=== PATIENT | male | born 1940 | race Caucasian/White ===

== ENCOUNTER → 2020-08-25 09:08 | Outpatient (CLI) | payer MEDICARE, SELFPAY ==
[2020-08-25 11:21] LABS: COVID19 -Nasal RAPID Negative (Negative)
== END ==
PROVIDERS: Visit Provider Physician Assistant
DX: Z01.812 Encounter for preprocedural laboratory examination (principal); Z20.822 Contact with and (suspected) exposure to COVID-19
CPT/HCPCS: 87635; C9803

== ENCOUNTER 2020-08-26 12:11 | Day surgery (SDC) | payer MEDICARE, SELFPAY ==
[2020-08-26] VITALS (14 sets, daily range): BP systolic 106–160; BP diastolic 43–106; PULSE 48–60; RESP 10–18; TEMP 35.7–36.7; O2SAT 89–99; BMI 25.8
--- NOTE | 2020-08-26 | DI.RAD.S_ITS ---
PROCEDURE: XR HIP W PEL IF DONE LT 2V INDICATIONS: INTRA OP LEFT HIP TECHNIQUE: 2 view(s) of the hip acquired. COMPARISON: None. FINDINGS: Bones: Intraoperative fluoroscopic images total left hip replacement demonstrate good positioning of the components. IMPRESSION: Postoperative changes of left hip replacement. Dictated by: Johan Salvador M.D. on 08/26/2020 at 20:37 Approved by: Johan Salvador M.D. on 08/26/2020 at 20:38
--- NOTE | 2020-08-26 | DI.RAD.S_ITS ---
PROCEDURE: XR HIP W PEL IF DONE LT 2V INDICATIONS: TOTAL LEFT HIP TECHNIQUE: 2 views of the hip were acquired. COMPARISON: [facility], , XR HIP W PEL IF DONE LT 2V, 08/26/2020, 17:04. FINDINGS: Intraoperative fluoroscopic images demonstrate postoperative changes of left hip replacement IMPRESSION: Postoperative changes left hip replacement. Dictated by: Johan Salvador M.D. on 08/26/2020 at 20:39 Approved by: Johan Salvador M.D. on 08/26/2020 at 20:41
[2020-08-26] MEDS: ACETAMINOPHEN 325 MG TABLET 975 MG PO (12:58)
[2020-08-26] MEDS: CELECOXIB 200 MG CAPSULE PO (12:59)
[2020-08-26] MEDS: PREGABALIN 75 MG CAPSULE PO (12:59)
[2020-08-26] MEDS: LACTATED RINGERS 1,000 ML 42 ML IV ×2 (13:04→17:44)
[2020-08-26] MEDS: VANCOMYCIN 1,000 MG/200 ML PIGGYBACK 200 MG IV (14:13)
[2020-08-26] MEDS: CEFAZOLIN 2 GM/100 ML FROZ.PIGGY IV ×2 (15:24→22:33)
--- NOTE | 2020-08-26 16:11 | SUR.OPER ---
Supine on padded [place] table with bilateral legs secured in padded positioning boots and suspended in positioning spars, operative leg in traction per surgeon. Head on one pillow. Arm on non-operative side secured on padded armboard <90 degrees abduction. Arm on operative side padded and resting across chest then secured with tape over sheet. Padded perineal post in place per surgeon.
--- NOTE | 2020-08-26 16:29 | SUR.OPER ---
mid lower back on spine, pre-existing wound that is scabbed over. Patient states, it's a cyst that opened up some time ago and is healing. Patient stated that he has had this cyst for many years and has tried to get it removed twice, but it came back.
[2020-08-26] MEDS: BUPIVACAINE 0.25% W/ EPI (PF) 10 ML VIAL 60 ML INJ (16:38)
[2020-08-26] MEDS: BUPIVACAINE LIPOSOME 266 MG/20 ML VIAL INJ (16:39)
[2020-08-26] MEDS: SODIUM CHLORIDE IRRIG SOLUTION 250 ML, POVIDONE-IODINE SPONGE STICKS 1 APPLIC IRR (16:39)
[2020-08-26] MEDS: TRANEXAMIC ACID 1,000 MG VIAL 1000 MG INJ ×2 (16:42→18:12)
--- NOTE | 2020-08-26 18:48 | P.OP_ITS ---
Operative Date/Time/Diagnoses Date of procedure: 08/26/20 Time of procedure: 16:02 Pre-op diagnosis: left hip OA Post-op diagnosis: same Procedure & Clinicians Procedure: left total hip anterior approach Same procedure as scheduled: Yes Indications: The patient has had progressively worsening left hip pain with radiographic changes consistent with arthritis. Non-operative management has failed and the patient has requested total hip replacement. The risks, benefits and alternatives to surgery were discussed with the patient prior to proceeding. Risks discussed included, but were not limited to, failure to relieve pain, leg length discrepancy, dislocation, stiffness, infection, nerve damage, deep venous thrombosis, pulmonary embolism, stroke, coma, heart attack, permanent paralysis and , as well as the potential need for eventual revision of the prosthetic. Surgeon: Kimmy Kelley Printing Estimator: Waldo Cooper Anesthesia Type: General and Spinal Operative Notes Findings: stiff hip, good bone, adequate stability Closure Type: primary Specimen(s): none sent Prosthetic devices, grafts, tissues, transplants, or devices: [employer] standard offset 8 anthology, +0 head, 56 cup, neutral poly liner, 1 screw Estimated Blood Loss (mL): 250 Blood products transfused: none Procedure in detail: The patient was brought to the operating room. Patient was carefully positioned in the supine position. Time-out was performed and antibiotics were given. Anesthesia was induced. He was positioned in the on the table in order to allow hyperextension of the hip. The left lower extremity was prepped and draped in a standard sterile fashion. An anterior left hip incision was made 1 fingerbreadth lateral to the anterior superior iliac spine and extended distally towards the greater trochanter. Dissection was carried out through skin and subcutaneous tissues. Superficial hemostasis was achieved. The fascia over the tensor fascia paulino was defined and incised with a knife. Two Allis clamps were used to grasp the fascia. Tensor fascia paulino was retracted laterally. A gelpi retractor was placed. Dissection was carried out down along the neck. The circumflex vessels were carefully identified and cauterized with the Aqua Mantis. There was good visualization of the femoral neck. A Cobra was placed superior to the neck and the gluteus fibers were carefully stripped from that superior aspect of the capsule. A 2nd retractor was placed along the inferior aspect of the neck. The rectus insertion along the capsule was partially released. A 3rd retractor that was then gently placed over the rim of the acetabulum under the rectus. Capsule was carefully incised and released from the intertrochanteric line circumferentially superior to the mid sagittal line and inferiorly to the mid sagittal line until the lesser trochanter was palpable. A tag stitch was placed both in the superior and inferior limb of the capsular insertion. Along the acetabulum capsule was also released up to the mid sagittal 12:00 position. A portion of the labrum was resected. A saw was used to perform an osteotomy at the level of the intertrochanteric line and the junction of the superior femoral neck leaving approximately 1 finger breath of residual inferior neck above the lesser trochanter. A 2nd cut was made along the femoral neck at the base of the head and a napkin ring of neck was removed. Corkscrew was placed in the femoral head and the head was removed without difficulty. Retractors were then repositioned around the acetabulum. Residual labrum was resected and additional osteophytes were removed. A reamer that was 4 mm below the templated size was placed by hand in the acetabulum and it was reamed to centralize the acetabulum. It was then reamed up to 2 under the templated size and fluoroscopy was brought in to confirm the position of the reaming and depth of reaming. I reamed 1 under the anticipated size and touched the rim with line to line reaming. A trial cup was placed and noted that it was appropriately sized and fluoroscopy confirmed position and depth. The component was open and inserted without difficulty fluoroscopic imaging was used to confirm that the cup had been adequately seated and was well positioned. Neutral poly liner was placed. The cup was tested and noted to be stable. Attention was then directed to the femur. The femur was gently hyperextended additional capsular release was performed as needed in order to allow adequate visualization of the proximal femur with elevation of the femur. Patient was placed in a hyperextended slightly adducted position with maximum external rotation. Box osteotome was used to check for any residual neck as well as sclerotic bone along the trochanter. [place] pepper was placed in the femur. Additional broaching was performed. Canal finder was used to determine the alignment of the canal and position. Size 1 broach was placed. The canal was then appropriately broached up to the templated size as long as there was adequate stability of the broach and serial advancement of the broach without excessive impingement. Specific attention was directed at avoiding varus attempting to direct the distal aspect of the broach more anteriorly and avoiding excessive anteversion. Trial reduction showed acceptable range of motion, good stability, no posterior impingement, congregation of leg length and appropriate lateral shuck. I also hyperflexed the hip and checked that there was no impingement anteriorly and there was good stability with flexion, adduction and internal rotation. Final neutral poly was placed without difficulty. Marcaine and Exparel were injected. The stem was placed without difficulty. Repeat trial reduction and x-ray showed acceptable overall position, length, and no evidence of the femoral fracture. Final head was placed. Wound was meticulously irrigated with normal saline. The hip was reduced and additional Exparel and Marcaine were injected. The capsule was closed with interrupted nonabsorbable sutures. The fascia of the tensor was closed with interrupted and running Vicryl. No drain was placed. Any tensor fascia paulino muscle that appeared to be contused or injured which was a minimal amount was carefully resected. Capsule around the tensor was injected with Exparel and Marcaine. The skin was closed with barbed stitches for the subcutaneous tissue and skin. We also used surgical glue. The wound was dressed sterilely. Brief Betadine soak was also used and was meticulously irrigated with normal saline. Patient was transferred to recovery room in satisfactory condition. Complications: none Post-operative Condition: stable Disposition: Acute Care Plan for aftercare: The patient will be maintained on a standard total hip replacement protocol with weight bearing as tolerated and anterior hip precautions. The patient will receive Aspirin and sequential compression devices for DVT prophylaxis. The patient will be discharged home when safe for the home environment.
[2020-08-26 20:37] LABS: Alanine Aminotransferase 22 IU/L (<50)
[2020-08-26] MEDS: LACTATED RINGERS 1,000 ML 125 ML IV (20:39)
[2020-08-26] MEDS: IBUPROFEN 400 MG TABLET PO (20:39)
[2020-08-26] MEDS: ASPIRIN EC 81 MG TABLET PO (20:39)
[2020-08-26] MEDS: DOCUSATE 100 MG CAPSULE PO (20:39)
[2020-08-26] MEDS: ACETAMINOPHEN 325 MG TABLET 650 MG PO (20:39)
[2020-08-26] MEDS: METOPROLOL IR 50 MG TABLET PO (20:39)
[2020-08-26] MEDS: PRAMIPEXOLE 0.25 MG TABLET 0.5 MG PO (20:40)
[2020-08-26 21:25] LABS: Hepatitis B Surface Antigen NEGATIVE s/c (NEGATIVE)
[2020-08-26 21:53] LABS: HIV 1 & 2 Ab/Ag 4th Gen Combo NEGATIVE (NEGATIVE); Hep C Virus Ab w/Reflex Quant NEGATIVE s/c (NEGATIVE)
[2020-08-27] MEDS: IBUPROFEN 400 MG TABLET PO ×3 (00:38→08:31)
[2020-08-27 05:00] VITALS: BP 118/70; PULSE 60; RESP 16; TEMP 36.6; O2SAT 92
[2020-08-27] MEDS: LEVOTHYROXINE 25 MCG TABLET PO (05:05)
[2020-08-27 05:20] LABS: Hematocrit 40.9 % (41-53); Hemoglobin 13.5 g/dL (13.5-17.5)
[2020-08-27] MEDS: CEFAZOLIN 2 GM/100 ML FROZ.PIGGY IV (06:17)
--- NOTE | 2020-08-27 07:04 | PC.NURSE ---
pittman catheter was not draining, BUNDLE TIER bladder scanned, and nurse strait cathed and got 1,000cc out, urine was clear and yellow after initial urine started with some red blood. pt denied pain.
[2020-08-27 07:20] VITALS: BP 133/63; PULSE 60; RESP 18; TEMP 36.3; O2SAT 94
--- NOTE | 2020-08-27 08:24 | PM.DS.1 ---
History of Present Illness History of Present Illness Date Patient Seen: 08/27/20 Time Patient Seen: 08:24 Chief complaint: OPB Narrative: Please refer to previously documented HPI and chart. Discharge Providers Provider Discharge Date: 08/27/20 Primary care physician: Corona Rocha MD Consults: 08/26/20 06:00 Consult to Anesthesiology Routine Comment: Consulting Provider: Anesthesiologist Reason for consultation: Regional block for post operative pain control 08/26/20 13:10 Consult to Respiratory Therapy Evaluate & Treat Comment: Physician Instructions: Evaluate and treat 08/26/20 19:59 Consult to Discharge Planning Routine Comment: Consult to Physical Therapy Evaluate & Treat Comment: Physician Instructions: post op RUBIA protocol Consult to Respiratory Therapy Evaluate & Treat Comment: Physician Instructions: Evaluate and treat Discharge provider: Waldo Cooper PA-C Summary Hospital Course Discharge Diagnosis: Left hip osteoarthritis Status post total left hip arthroplasty via anterior approach Hospital Course: 80-year-old male with the above-listed diagnosis was consented for the indicated procedure above and presents to the OR undergoing said procedure without difficulty or complication that admitted to hospital for rehabilitation having convalesced appropriately did have some issue with urinary retention and was given Flomax before discharging having urinary output within normal limits. The patient was eventually able to discharge home safely in stable condition. At the time of discharge the patient verbalized understanding postoperative total joint care instructions and agree with plan for follow-up as scheduled or sooner as needed. Status at Discharge Cognitive/behavioral status at discharge: oriented Functional status at discharge: uses cane/walker Overall status at discharge: patient is progressing back to baseline Time Spent with Patient Time spent: Less than 30 minutes Exam Vital Signs (past 8 hours): - 08/27/20 05:00 08/27/20 07:20 Temperature 97.8 F 97.3 F L Pulse Rate 60 60 Respiratory Rate 16 18 Blood Pressure 118/70 133/63 Pulse Oximetry 92 94 Oxygen Delivery Method Room Air Oxygen Flow Rate 0 Narrative Exam Narrative: 80-year-old male observed resting comfortably in no apparent distress. Alert and oriented within normal limits. Regular heart rate and normal inspiratory effort. Dressing was clean, dry and intact. The extremity distal to the affected joint was neurovascularly intact with grossly normal motor function including SLR. Patient was negative for signs and symptoms of DVT bilaterally. Objective Labs Result Diagrams: 08/27/20 05:00 Labs: Laboratory Results - last 24 hr 08/26/20 08/26/20 08/27/20 20:16 20:16 05:00 Hgb 13.5 Hct 40.9 L ALT 22 Hep Bs Antigen Negative Hepatitis C Antibody Negative HIV 1&2 Ab/P24 Ag 4thGn Negative PFS Medical History (Updated 08/25/20 @ 08:17 by Mag Blake, RN) Former smoker Hyperlipidemia Hypertension Primary osteoarthritis of left hip Thyroid disease Surgical History (Updated 08/25/20 @ 08:17 by Mag Blake, RN) H/O hernia repair History of tonsillectomy History of vasectomy Social History household members: spouse Smoking Status: Former smoker alcohol intake: current Discharge Assessment & Plan Assessment and Plan Assessment: Left hip osteoarthritis Status post total left hip arthroplasty via anterior approach Plan of Treatment: -discharge home after cleared by PT/OT and able to void within normal limits. -1 dose of Flomax given for urinary retention. -postoperative total anterior hip care protocol/restrictions apply. -follow-up in 2 weeks for re-evaluation or sooner as needed. Discharge Plan Discharge Plan Patient Disposition: Home Discharge orders & Medications Discharge Orders: Discharge (Order); Ordered 08/27/20 Ordered By: Waldo Cooper Prescriptions: New acetaminophen 325 mg Tablet 650 mg PO TID PRN (Reason: Breakthrough Pain, Moderate) Qty: 60 RF: 0 aspirin 81 mg Tablet,Delayed Release (Dr/Ec) 81 mg PO BID Qty: 90 RF: 0 ibuprofen 400 mg Tablet 400 mg PO Q4HR PRN (Reason: Breakthrough Pain, Moderate) Qty: 60 RF: 0 tramadol 50 mg tablet 50 mg PO Q6H PRN (Reason: pain) Qty: 60 RF: 0 Continued metoprolol tartrate 50 mg Tablet 50 mg PO BID RF: 0 doxazosin 4 mg Tablet 4 mg PO DAILY RF: 0 rosuvastatin 5 mg Tablet 5 mg PO DAILY RF: 0 acetaminophen 325 mg Tablet 650 mg PO Q4H PRN (Reason: Pain (Scale Score 4-6)) RF: 0 pramipexole 0.5 mg Tablet 0.5 mg PO BEDTIME RF: 0 levothyroxine 25 mcg Capsule 25 mcg PO DAILY RF: 0 Discontinued aspirin 81 mg Tablet 81 mg PO DAILY RF: 0 Follow up/Referrals: Corona Rocha MD [Primary Care Provider] - Kimmy Kelley MD [Physician] - (F//U in 2 weeks) Diet/Activity/Treatments Diet: Diet as Tolerated Activity: Weight-bearing as tolerated on left lower extremity with front wheel walker and fall precautions including total hip protocol anterior dislocation precautions. Cold/Heat Therapy: Ice 20 minutes/hour as tolerated Skin/Wound/Dressing Care Report to your healthcare provider any signs of infection, such as:: chills, fever, night sweats, increased pain, unusual drainage and unusual redness Dressing: Keep dressing clean, dry and intact. Visit Report/Discharge Packet Instructions: DI for Hip Replacement Stand Alone Forms: Surgery Discharge Discharge Data Primary Care Provider: Corona Rocha Attending Provider: Kimmy Kelley
[2020-08-27] MEDS: ACETAMINOPHEN 325 MG TABLET 650 MG PO (08:30)
[2020-08-27] MEDS: DOCUSATE 100 MG CAPSULE PO (08:30)
[2020-08-27] MEDS: ASPIRIN EC 81 MG TABLET PO (08:30)
[2020-08-27] MEDS: SODIUM CHLORIDE 0.9% FLUSH 10 ML IV (08:30)
[2020-08-27] MEDS: TAMSULOSIN 0.4 MG CAPSULE PO (08:31)
--- NOTE | 2020-08-27 09:52 | PC.NURSE ---
Addendum entered by Devi Riley R.N. 08/27/20 14:17: Went over dc instructions with patient and patients , questions answered. Patient taken via wc to vehicle driven b spouse pt had all belongings. Addendum entered by Devi Riley R.N. 08/27/20 13:17: Patient voided 225cc clear yellow urine, anticipating discharge later this afternoon. Original Note: Patient alert, oriented denies hip pain, ambulated in chery with therapy and RN, gait steady. No void yet, flomax given.
[2020-08-27] MEDS: DOXAZOSIN 4 MG TABLET PO (10:31)
[2020-08-27] MEDS: METOPROLOL IR 50 MG TABLET PO (10:32)
--- NOTE | 2020-08-27 10:46 | PT.IIE ---
Current Diagnoses Unilateral primary osteoarthritis, left hip (08/26/20) Surgery Performed Operation Date: 08/26/20 13:45 Actual Procedures p Total Hip Arthroplasty/Anterior Approach(Left) - Kimmy Kelley MD Surgical History (Last Updated 08/25/20 @ 08:17 by Mag Blake, RN) H/O hernia repair History of tonsillectomy History of vasectomy Medical History (Last Updated 08/25/20 @ 08:17 by Mag Blake, RN) Former smoker Hyperlipidemia Hypertension Primary osteoarthritis of left hip Thyroid disease Physical Therapy Inpatient Evaluation/Re-Eval M1 PT/OT-IP Prior Functional Status Start: 08/27/20 08:50 Freq: NEEDED Status: Active Protocol: Document 08/27/20 09:03 HH (Rec: 08/27/20 10:46 [id number]) Medical Review Prior Functional Status Medical History Reviewed Yes Diet/Fluid Consistency Regular Communication no deficits noted. Mobility and Gait IND with all mobility withou AD Activities of Daily Living and IADL's IND for all ADLs and IADLs. able to drive Social History Household Members spouse Living Arrangements House Number of Floors (Floors) One Floor Number of Stairs To Enter/Railing? ramp entry with B rails Home Environment Standard Height Toilet,Tub/ Shower,Ramp Home Equipment Four Wheel Walker,Straight Cane,Hand Held Shower,Grab Bars Near Toilet,Grab Bars In Shower Employment Status Retired Additional Social History Comment Pt lives with his in [place] who is also in good health. Pt will go to [facility] after. M2 PT-IP Current Condition Start: 08/27/20 08:50 Freq: NEEDED Status: Active Protocol: Document 08/27/20 09:03 HH (Rec: 08/27/20 10:46 [email or web address]) Physical Therapy Current Condition Current Condition Evaluation Date 08/27/20 Treatment Diagnosis L RUBIA with anterior approach, difficulty in walking Onset Date 08/26/20 Precautions Anterior Hip Precautions No Hip Extension,No Hip External Rotation Weight Bearing Status Weight Bearing Status Weight Bear as Tolerated M3 PT-IP Subjective Start: 08/27/20 08:50 Freq: NEEDED Status: Active Protocol: Document 08/27/20 09:03 HH (Rec: 08/27/20 10:46 [email or web address]) Subjective Physical Therapy Visit Type Type Initial Evaluation Visit Start Time 09:03 Visit Stop Time 09:28 Total Visit Minutes 25 Number of SPEECH COMMUNICATION PROFESSOR Visits 0 Physical Therapy Visit Comments Patient Comments Im feeling pretty good Patient Goals To return home with his Therapy Pain Assessment Pain When Pain Assessed During Mobility Pain Present Pain Present Pain Reported Location left hip Intensity 2 Scale Used Numeric (0 - 10) Description Aching Pain Management Techniques Timing of Activity with Medications M4 PT-IP Mobility and Gait Start: 08/27/20 08:50 Freq: NEEDED Status: Active Protocol: Document 08/27/20 09:03 (Rec: 08/27/20 10:46 [email or web address]) PT-Bed Mobility Assessment Supine to Sit Supine to Sit Standby Assistance Scooting Scooting to Edge of Bed Standby Assistance PT-Transfer Assessment Sit to and From Stand Sit to and from Stand Standby Assistance,Use of Upper Extremities Equipment Transfer Assistive Device Gait Belt,Front Wheeled Walker Orthotic/Prosthetic Devices or Brace: No Transfers Transfer Destination Bed,Chair Transfer Technique Stand Step Pivot Transfer Ability Level of Assist Standby Assistance,Use of Upper Extremities Comments Mobility Comments Pt was in bed upon PT arrival. AxOx4 . Educated pt with post op protocols and he has good understanding. Pt agreed to mobilize with PT. He completed supine to long sit followed by pivoting himself to R EOB SBA. He then stood up with FWW (one UE pushed off from bed and FWW). Pt was able to stand upright with equal WB on both LEs. He then amb with FWW SBA down in hallway with a steady gait but minimal antalgic sign. He completed walking 3/4 of the AC unit and no increased pain noted. He then returned to his room chair with safe transfer and descend . Call light placed within reach after and educated pt to acquire a FWW from DME store prior to going home. Gait Assessment Gait Gait Assistance Required: Standby Assistance Distance (Feet) 290 Able to Maintain Weight Bearing Status Yes During Gait Assistive Devices Assistive Device Gait Belt,Front Wheeled Walker Orthotic/Prosthetic Devices or Brace: No Gait Deviations General Gait Pattern Within Normal Limits,Antalgic, Decreased Stride Length, Decreased Feet Clearance Factors Limiting Gait Function Factors Limiting Gait Function Decreased Activity Tolerance, Decreased Strength,Limited Range of Motion,Pain Comments Gait Comments see mobility comments Stair Climbing Assessment Comments Stair Climbing Comments ramp entry at home PT-Balance Assessment Sitting Balance and Reactions Static Sitting Balance Ability Normal Dynamic Sitting Balance Ability Normal Standing Balance and Reactions Static Standing Balance Ability Normal Dynamic Standing Balance Ability Good Device Used FWW M5 PT-IP Objective Assessments Start: 08/27/20 08:50 Freq: NEEDED Status: Active Protocol: Document 08/27/20 09:03 (Rec: 08/27/20 10:46 [email or web address]) Orientation Orientation/Cognition Level of Alertness Alert Orientation Name,Age,Birthday,Month,Date, Year,Day of Week,Place, Situation Language Function Ability No Deficits Noted Safety Awareness Understands Safety Issues Memory Description No Deficits Noted Gross Range of Motion Upper Extremity ROM Assessment Within Functional Limits Lower Extremity ROM Assessment Left Impaired Strength Upper Extremity Strength Assessment Within Functional Limits Lower Extremity Strength Assessment Left Impaired Hip 4-/5 Knee 5/5 Ankle 5/5 Coordination Assessment Gross Coordination Gross Coordination WNL Sensation Assessment Sensation Gross Sensation WNL M6 PT-IP Treatment Start: 08/27/20 08:50 Freq: NEEDED Status: Active Protocol: Document 08/27/20 09:03 (Rec: 08/27/20 10:46 [email or web address]) Physical Therapy Treatment Exercises Exercises Ankle Pumps,Gluteal Sets,Quad Sets,Heel Slides,Straight Leg Raises Education Education Provided Precautions,Weight Bearing Status,Post-Op Packet,Safety M7 PT-IP Assessment and Plan Start: 08/27/20 08:50 Freq: NEEDED Status: Active Protocol: Document 08/27/20 09:03 (Rec: 08/27/20 10:46 [email or web address]) PT Summary Assessment and Plan Potential Rehabilitation Potential Excellent Status of Condition at Evaluation Stable Summary Impairments Pain,ROM,Strength,Balance,Bed Mobility,Transfers,Gait, Activity Tolerance Progress Towards Goals Safe For Discharge Assessment Summary Pt is a 80 yo male s/p POD1 L RUBIA with anterior approach. Pt was IND for all mobility and ADLs/IADLs without AD. His major c/o was hip pain only. Upon assessment, pt did very well and able to complete transfers and ambulation with SBA FWW. He walked 290 ft with minimal antalgic sign. However, pt only has 4WW therefore this PT recommended him to acquire FWW before he gets home. Pt shows good understanding with good safety awareness. He is ready for DC with assistance at home and outpatient PT. Frequency of Treatment Frequency Of Treatment Discharge Precautions Anterior Hip Precautions No Hip Extension,No Hip External Rotation Recommendations To Nursing Amount of Assist Needed Standby Assistance Discharge Recommendations PT Discharge Recommendations Home with Assistance, Outpatient PT Equipment Needed for Home Before pt will acquire [facility] Transportation Needs at Discharge Private Vehicle
[2020-08-27 11:56] VITALS: BP 128/68; PULSE 57; RESP 18; TEMP 36.2; O2SAT 96
[2020-08-28 04:01] LABS: Hepatitis B Surf Ab Qualitativ Reactive (.)
--- NOTE | 2020-08-29 15:01 | CM.DPNOTE ---
DC Note Late Entry This SECURITY TEST ENGINEER followed patient throughout his stay, indp in room and eager to return home, no needs identified from this SECURITY TEST ENGINEER. DC 4.7.21 w/no needs JW
== END 2020-08-27 14:18 | disposition home or self-care (01) ==
LOC: OR 19:55 → AC 19:57
PROVIDERS: PCP Family Medicine; Referring Provider Psychiatry & Neurology Neurology; Visit Provider Orthopaedic Surgery
PROC: (CPT 27130; principal; 2020-08-26 13:45)
DX: M16.12 Unilateral primary osteoarthritis, left hip (principal); I10 Essential (primary) hypertension; E78.5 Hyperlipidemia, unspecified; E03.9 Hypothyroidism, unspecified; G47.33 Obstructive sleep apnea (adult) (pediatric)
CPT/HCPCS: 27130; 36415; 73502; 76000; 85014; 85018; 97161; C1776; C9290; J0171; J0690; J1100; J2250; J2274; J2405; J2704; J3010